=== PATIENT | female | born 1955 | race Hispanic/Latino ===

== ENCOUNTER → 2017-06-01 | Emergency (ER) | payer MEDICARE, OTHER ==
[~2017-06-01] VITALS: Ht 152.4 cm; Wt 76.7 kg
[~2017-06-01] MED LIST: ACCU CHEK COMP MC; ATORVASTATIN CA20 MG PO; ENALAPRIL MALEA10 MG PO; KEFLEX500 MG PO; MECLIZINE HCL25 MG PO; METFORMIN HCL500 MG PO; NAPROXEN500 MG PO; NORCO 5-325 TA1 EACH PO; TAMIFLU75 MG PO
== END ==
LOC: ED 21:09
DX: J11.1 Influenza due to unidentified influenza virus with other respiratory manifestations (principal); E11.9 Type 2 diabetes mellitus without complications; E78.00 Pure hypercholesterolemia, unspecified; I10 Essential (primary) hypertension; Z88.5 Allergy status to narcotic agent; Z79.84 Long term (current) use of oral hypoglycemic drugs; Z79.899 Other long term (current) drug therapy
CPT/HCPCS: 99283

== ENCOUNTER 2018-05-30 01:34 | Emergency (ER) | payer MEDICARE, OTHER ==
[~2018-05-30] VITALS: Ht 152.4 cm; Wt 81.7 kg
[2018-05-30] MEDS ORDERED: CEPHALEXIN500 MG PO (03:50)
[2018-05-30] MEDS ORDERED: ZOFRAN8 MG PO (03:56)
[2018-05-30] MEDS ORDERED: NORCO 5-325 TA1 EACH PO (03:56)
== END 2018-05-30 05:15 | disposition home or self-care (01) ==
LOC: ED 01:34
DX: N39.0 Urinary tract infection, site not specified (principal); E11.9 Type 2 diabetes mellitus without complications; E78.00 Pure hypercholesterolemia, unspecified; I10 Essential (primary) hypertension; Z88.5 Allergy status to narcotic agent; Z79.84 Long term (current) use of oral hypoglycemic drugs; Z79.899 Other long term (current) drug therapy
CPT/HCPCS: 74177; 80053; 81001; 83690; 85025; 87088; 96365; 96375; 99284-25; J0696; J1885; J2405; J7030; Q9967

== ENCOUNTER 2019-09-04 23:10 | Emergency (ER) | payer MEDICARE ==
[~2019-09-04] VITALS: Ht 152.4 cm; Wt 78.0 kg
[~2019-09-04 23:10] MED LIST changes: +CEPHALEXIN500 MG PO; +ZOFRAN8 MG PO
[2019-09-04] MEDS ORDERED: GLIPIZIDE5 MG PO (23:35)
[2019-09-05] MEDS ORDERED: ULTRAM50 MG PO (01:36)
== END 2019-09-05 01:49 | disposition home or self-care (01) ==
LOC: ED 23:10
DX: R10.31 Right lower quadrant pain (principal); E11.9 Type 2 diabetes mellitus without complications; E78.00 Pure hypercholesterolemia, unspecified; I10 Essential (primary) hypertension; Z88.5 Allergy status to narcotic agent; Z79.899 Other long term (current) drug therapy
CPT/HCPCS: 74177; 80053; 81001; 83690; 85025; 99284-25; J7030; Q9967

== ENCOUNTER 2022-07-11 06:15 | Emergency (ER) | payer MEDICARE ==
[~2022-07-11] VITALS: Ht 152.4 cm; Wt 79.0 kg
[~2022-07-11 06:15] MED LIST changes: +GLIPIZIDE5 MG PO; +ULTRAM50 MG PO
[2022-07-11] MEDS ORDERED: PRILOSEC OTC20 MG PO (08:36)
== END 2022-07-11 09:07 | disposition home or self-care (01) ==
LOC: ED 06:15
DX: R10.13 Epigastric pain (principal); E11.9 Type 2 diabetes mellitus without complications; E78.00 Pure hypercholesterolemia, unspecified; I10 Essential (primary) hypertension; Z88.5 Allergy status to narcotic agent; Z79.899 Other long term (current) drug therapy; Z79.84 Long term (current) use of oral hypoglycemic drugs
CPT/HCPCS: 36415; 74177; 80053; 81003; 83690; 85025; 96375; 99284-25; C9113; J2405; J3010; J7030; Q9967

== ENCOUNTER 2024-05-30 22:53 | Emergency (ER) | payer MEDICARE ==
[~2024-05-30] VITALS: Ht 152.4 cm; Wt 78.5 kg
[~2024-05-30 22:53] MED LIST changes: +PRILOSEC OTC20 MG PO
[2024-05-30 23:14] LABS: BILIRUBIN, URINE NEGATIVE (negative); BLOOD/HGB, URINE NEGATIVE (Negative); KETONE, URINE NEGATIVE (Negative); LEUK ESTERASE, URINE TRACE (negative); NITRITE, URINE NEGATIVE (negative); PH, URINE 5.5 (5-7)
[2024-05-30 23:25] LABS: RED BLOOD CELLS, URINE 0-1 /hpf (0-5)
[2024-05-30 23:26] LABS: BACTERIA, URINE NONE SEEN /hpf (negative); CASTS, URINE NONE SEEN \\lpf; COLLECTION TYPE, URINE CLEAN CATCH; CRYSTALS, URINE NONE SEEN (0-1+); EPITHELIAL CELLS, URINE SQUAMOUS 2+ /lpf (0-1+); REFLEX CULTURE, URINE No (No)
[2024-05-30 23:42] LABS: BASOPHILS 0.5 % (0-2); EOSINOPHILS 2.7 % (0-6); HEMATOCRIT 31.6 % (35.0-50.0); HEMOGLOBIN 10.3 g/dL (12.0-18.0); LYMPHOCYTES 46.3 % (24-44); MCHC 32.6 g/dl (30-36); NEUTROPHILS 43.5 % (39-80); PLATELET COUNT 257 K/uL (140-440); RBC 3.55 M/ul (4.3-5.7); RDW 16.5 (10.5-15.0)
[2024-05-30] MEDS ORDERED: fentaNYL citrate 100 MCG/2 ML VIAL IV ONE (23:45)
[2024-05-30] MEDS ORDERED: FAMOTIDINE 20 MG/ 2 ML VIAL IV ONE (23:45)
[2024-05-31 00:04] LABS: ALBUMIN 3.1 g/dL (3.4-5.0); ALBUMIN/GLOBULIN RATIO 0.74 (1.1-2.4); ANION GAP 12.1 (7-21); BILIRUBIN, TOTAL 0.2 ng/dL (0.2-1.0); BUN/CREATININE RATIO 15.25 (6.0-28.6); CALCIUM 8.1 mg/dL (8.5-10.1); CREATININE, SERUM 1.18 mg/dL (0.55-1.02); MAGNESIUM 1.2 mg/dL (1.8-2.4); POTASSIUM 4.1 mmol/L (3.5-5.1); PROTEIN, TOTAL 7.3 g/dL (6.4-8.2)
[2024-05-31 01:30] VITALS: BP 132/43
[2024-05-31] MEDS ORDERED: MAGNESIUM OXIDE 400 MG TABLET PO ONE (01:30)
[2024-05-31] MEDS ORDERED: OMEPRAZOLE20 MG PO (01:35)
[2024-05-31] MEDS ORDERED: MAGNESIUM OXID400 M1 PO (01:35)
== END 2024-05-31 01:58 | disposition home or self-care (01) ==
LOC: ED 22:53
PROVIDERS: Internal Medicine
DX: R10.12 Left upper quadrant pain (principal); R10.32 Left lower quadrant pain; R11.2 Nausea with vomiting, unspecified; E83.42 Hypomagnesemia; E11.9 Type 2 diabetes mellitus without complications; E78.00 Pure hypercholesterolemia, unspecified; I10 Essential (primary) hypertension; Z88.5 Allergy status to narcotic agent; Z79.84 Long term (current) use of oral hypoglycemic drugs; Z79.899 Other long term (current) drug therapy
CPT/HCPCS: 36415; 74177; 80053; 81001; 83690; 83735; 84484; 85025; 87088; 96375; 99284-25; J3010; Q9967